=== PATIENT | female | born 1935 | race Caucasian/White ===

== ENCOUNTER 2019-05-27 13:33 | Outpatient (CLI) | payer MEDICARE, SELFPAY ==
--- NOTE | ~2019-05-27 | XR_ITS ---
EXAMINATION: XR lumbar spine 2-3V DATE: 05/27/2019 14:02 INDICATION: Spinal stenosis TECHNIQUE: Anteroposterior and lateral views of the lumbar spine, and cone-down lateral view of the l umbosacral junction were obtained. COMPARISON: 11/02/2017; CT, 04/02/2018 FINDINGS: There has been interval anterior and posterior fusion at L4-5. Anterior fusion at L3-4 is u nchanged. Previously described anterolisthesis of L4 on L5 has been reduced to anatomic alignment. Th ere is chronic severe loss of intervertebral disc space height at L5-S1 which is unchanged. There is no acute fracture. There is interval loss of vertebral body height at L3 which have the appearance of a burst fracture on the [address] Moderate loss of intervertebral disc space height is pre sent at L2-3. The bowel gas pattern is normal. Cholecystectomy clips are noted in the right upper lucien drant. IMPRESSION: 1. Chronic burst fracture of L3 without significant change. 2. Changes of anterior fusion at L3-4 and L4-5 and posterior fusion at L4-5. 3. Unchanged moderate to severe lumbar spondylosis elsewhere. Reviewed, dictated and finalized at location A. CH SERVICE REPRESENTATIVE
== END 2019-05-27 13:34 | disposition home or self-care (01) ==
PROVIDERS: PCP Family Medicine; Visit Provider Family Medicine
DX: M48.07 Spinal stenosis, lumbosacral region (principal); S32.031A Stable burst fracture of third lumbar vertebra, initial encounter for closed fracture; X58.XXXA Exposure to other specified factors, initial encounter; Z98.1 Arthrodesis status; M47.896 Other spondylosis, lumbar region
CPT/HCPCS: 72100

== ENCOUNTER 2019-06-13 12:26 | Outpatient (CLI) | payer MEDICARE, SELFPAY ==
--- NOTE | ~2019-06-13 | MR_ITS ---
EXAMINATION: MR lumbar spine wo/w con EXAM DATE: 06/13/2019 14:52 INDICATION: Low back pain. Lumbar fusion. TECHNIQUE: Multi-sequential, multiplanar MR images of the lumbar spine were obtained without contrast . Sagittal T1, T2, T2 fat saturation images. Axial T2 weighted images. Axial T1 weighted sequence. Patient was then injected with 17 mL Multihance intravenous contrast and reimaged. Postcontrast axi al and sagittal T1-weighted fat saturation sequences were obtained. Comparison is made to prior exami nation from 12/08/2017. FINDINGS: The interbody fusion hardware at L3-L4. There is been interval L4-5 interbody and posterior fusion and laminectomies. Chronic loss of vertebral body heights from L2-L5. There are no areas of a bnormal enhancement on the post contrast images. There is mild to moderate disc disease at L1-2, moderate to severe at L2-3. Mild loss of L5-S1. Minim al degenerative subluxations. The conus medullaris terminates at the L1-L2 level and has normal signa l intensity and morphology. Paraspinal soft tissue is unremarkable. There are no focal marrow signal abnormalities suspicious for malignancy or acute fracture. Level by level evaluation: T11-T12: There is a mild diffuse disc bulge. Facet arthropathy: Moderate left, mild right. Neural foraminal stenosis: Moderate left. Central canal stenosis: Mild. T12-L1: Disc does not extend beyond the endplate margin. Facet arthropathy: Mild. Neural foraminal stenosis: No stenosis. Central canal stenosis: No stenosis. L1-L2: There is a mild diffuse disc bulge. Facet arthropathy: Mild to moderate. Neural foraminal stenosis: Mild left. Central canal stenosis: No stenosis. L2-L3: There is a large diffuse disc bulge. Facet arthropathy: Moderate. Neural foraminal stenosis: Moderate to severe left, moderate right. Central canal stenosis: Moderate. L3-L4: Fused. Facet arthropathy: Poorly visualized. Neural foraminal stenosis: Mild to moderate right, mild left. Central canal stenosis: Laminotomies, posterior decompression. L4-L5: Interval fusion. Facet arthropathy: Poorly visualized. Neural foraminal stenosis: Moderate bilateral. Central canal stenosis: Posterior decompression. L5-S1: There is a mild to moderate diffuse disc bulge. Facet arthropathy: Moderate. Neural foraminal stenosis: Moderate to severe right, moderate left. Central canal stenosis: Mild. Compared to previous examination, there has been progression in spondylosis particularly at L2-3. IMPRESSION: 1. Interval L4-5 fusion, persistent L3-4 fusion. 2. Interval progression in lumbar disc disease, spondylosis as above. 3. Chronic loss of L2-L5 vertebral body heights. 4. No acute findings or abnormal enhancement. Reviewed, dictated and finalized at location A. BLACKER
[2019-06-13 14:01] LABS: Estimated Glomerular Filt Rate > 60
== END 2019-06-13 12:27 | disposition home or self-care (01) ==
PROVIDERS: PCP Family Medicine; Visit Provider Pain Medicine Pain Medicine
DX: M47.26 Other spondylosis with radiculopathy, lumbar region (principal); Z98.1 Arthrodesis status
CPT/HCPCS: 36415; 72158; A9577

== ENCOUNTER 2020-02-17 00:51 | Outpatient (CLI) | payer MEDICARE, SELFPAY ==
[2020-02-17 20:27] LABS: SARS-CoV-2 RNA PCR Negative
== END 2020-02-17 00:52 | disposition home or self-care (01) ==
LOC: ANHCOVIDDT 00:51
PROVIDERS: PCP Family Medicine; Visit Provider Neurological Surgery
DX: Z01.812 Encounter for preprocedural laboratory examination (principal); Z11.59 Encounter for screening for other viral diseases
CPT/HCPCS: 87635; C9803; U0003

== ENCOUNTER 2020-02-20 09:09 | Outpatient (CLI) | payer MEDICARE, SELFPAY ==
[2020-02-14 09:10] VITALS: BMI 39.3
[2020-02-20] VITALS (8 sets, daily range): BP systolic 155–180; BP diastolic 69–82; PULSE 56–70; RESP 16–18; TEMP 36.6; O2SAT 92–97
--- NOTE | ~2020-02-20 | CT_ITS ---
EXAMINATION: CT thoracic lumbar w con EXAM DATE: 02/20/2020 12:01 INDICATION: Low back, right leg pain. TECHNIQUE: Spiral CT of the thoracic and lumbar spine following intrathecal injection of contrast, 1 0 mL Omnipaque 300 solution. Axial, coronal and sagittal images were reviewed. The dose-length pro duct (DLP) for this examination was 1700 mGy-cm. The exposure was tailored according to patient siz e (auto mA exposure control), and iterative reconstruction (ASIR) was used as additional dose reducti on technique. Following this, patient was placed in postoperative area for 2 hours observation prior to being discharged. There were no immediate complications. Correlation is made to lumbar MRI from 06/13/2019. FINDINGS: THORACIC SPINE: There is adequate intrathecal opacification. Small amount of intrathecal gas introduc ed during the procedure. Spinal cord has normal diameter throughout its course. There are moderate to large right-sided anterolateral bridging endplate osteophytes. No endplate erosive changes. Mild to moderate diffuse loss of thoracic disc heights. The thoracic spinal canal is widely patent. The verte bral bodies are aligned in the AP dimension. At T11-12 there is moderate left, mild to moderate ri ght neural foraminal stenosis. Moderate to severe right neural foraminal stenosis at C7-T1 and T2-3. Moderate left neural foraminal stenosis at T1-T2 and T2-3. Otherwise no more than mild thoracic neura l foraminal stenosis. There is small sliding gastroesophageal hiatal hernia. LUMBAR SPINE: The conus medullaris terminates at the L1/2 level and has normal signal intensity and m orphology. Interbody fusion at L3-4 and L4-5. Posterior fusion hardware at L4-5. No periprosthetic l ucency. There is moderate chronic loss of the L3 and L4 vertebral body heights, mild at L5. Vacuum di sc phenomenon L1-2, L2-3 and L5-S1. Moderate to severe loss of the L2-3 disc height, moderate at L1-2 and L5-S1. The vertebral bodies are aligned in the AP dimension. There are no osteoblastic or osteol ytic lesions identified. Level by level evaluation: T12-L1: Disc does not extend beyond the endplate margin. Facet arthropathy: Mild bilateral. Neural foraminal stenosis: No stenosis. Central canal stenosis: No stenosis. L1-L2: There is a mild diffuse disc bulge. Facet arthropathy: Mild to moderate. Neural foraminal stenosis: Mild bilateral. Central canal stenosis: Mild. L2-L3: There is moderate disc osteophyte complex. Facet arthropathy: Moderate. Neural foraminal stenosis: Moderate to severe bilateral, left greater than right. Central canal stenosis: Moderate. L3-L4: This level is fused. Facet arthropathy: Poorly visualized. Neural foraminal stenosis: No stenosis. Central canal stenosis: No stenosis. Posterior decompression. L4-L5: This level is fused. Facet arthropathy: Poorly visualized. Neural foraminal stenosis: Mild bilateral. Central canal stenosis: No stenosis. Posterior decompression. L5-S1: There is a mild diffuse disc bulge. Facet arthropathy: Moderate to severe. Neural foraminal stenosis: Moderate to severe right, moderate left. Central canal stenosis: No stenosis. IMPRESSION: 1. Intact fusion L3-L5. Laminectomies. 2. Chronic L3-L5 compression fractures. 3. Thoracolumbar spondylosis as detailed above. Reviewed, dictated and finalized at location A. CTION CONTROL COORDINATOR
--- NOTE | ~2020-02-20 | XR_ITS ---
EXAMINATION: XR_MY2+_CR EXAM DATE: 02/20/2020 12:12 INDICATION: back pain, bilateral leg pain right side worse. Leg swelling. TECHNIQUE: Informed consent was obtained from the patient for doing this procedure. I discussed monroe efits and risks including bleeding, infection, backache, headache and seizure. Alternatives also disc ussed. The DAP for this procedure was 17.7 Gycm2. Correlation made with prior CT chest for rib count ing purposes. Time out procedure was performed. Community Support Worker radiograph was obtained. An entry site was chosen at the L5 -S1 level. A right paracentral approach was used. Standard sterile prep was done with Betadine. En try site was infiltrated with 3 cc 1% lidocaine. A 3.5 22G spinal needle was then inserted into the spinal canal. 8 mL Omnipaque 300 were then injected into the thecal sac. FINDINGS: Images demonstrate lumbar fusion hardware at L4-5 with interbody device and posterior fusio n hardware. Laminectomies. There is also interbody fusion at L3-4. Chronic L3-L5 compressions. Spinal needle projecting over the canal at the L5-S1 level. Initially small blush of contrast which w as believed to be epidural in position. The needle was then slightly repositioned at that level, and subsequently 8 mL of contrast was injected into the thecal sac. The needle was then withdrawn. Patient began experiencing discomfort, mostly in her right leg. We allowed her to lay on her side and then decided not to attempt multiple positionings for the myelogram images which typically do not co ntribute much information other than adequate placement of contrast and vertebral body counting. She also had complained of severe hip pain prior to procedure turned on her right side down. She was move d to the stretcher which was then was placed in Trendelenburg position for the transferred to CT. Moira quate thoracic intrathecal opacification was confirmed after patient's CT was obtained. Patient has 12 thoracic rib-bearing vertebral bodies which were confirmed on a prior CT chest. IMPRESSION: Lumbar fusion L3-L5. Adequate intrathecal opacification for subsequent CT. Reviewed, dictated and finalized at location A. AL SCIENCES PROFESSOR IMPRESSION: Lumbar fusion L3-L5. Adequate intrathecal opacification for subsequ ent CT.
[2020-02-20 09:43] LABS: Basophils Percent Auto 0.5 % (0.2-1.2); Eosinophils Absolute Auto 0.2 K/mm3 (0-0.3); Hematocrit 39.3 % (37.0-47.0); Hemoglobin 12.8 g/dL (12.0-15.0); Immature Granulocyte Absolute 0.01 K/mm3 (0.00-0.031); Immature Granulocyte Percent A 0.2 % (0-0.5); Lymphocytes Absolute Auto 1.35 K/mm3 (0.9-3.2); Lymphocytes Percent Auto 21.2 % (18.3-44.2); Mean Corpuscular HGB Conc 32.6 g/dl (32-36); Mean Corpuscular Hemoglobin 31.9 pg (26-34); Mean Platelet Volume 10.4 fl (7.4-10.4); Monocytes Absolute Auto 0.6 K/mm3 (0.1-0.6); Monocytes Percent Auto 9.6 % (2.6-8.5); Neutrophils Absolute Auto 4.2 K/mm3 (1.3-6.7); Neutrophils Percent Auto 65.5 % (45.5-73.1); Platelet Count Result 165 k/mm3 (150-375); Red Blood Count 4.01 M/mm3 (4.2-5.4); White Blood Count 6.4 K/mm3 (4.5-10.0)
[2020-02-20 10:01] LABS: Prothrombin Time 13.7 Seconds (11.1-14.7)
--- NOTE | 2020-02-20 13:33 | SUR.PHASEII ---
[id number] DR CORNELIUS SPEAKING WITH PT & SPOUSE- QUESTIONS ANSWERED. DR CORNELIUS OKAY TO DISCHARGE PT HOME.
== END 2020-02-20 13:55 | disposition home or self-care (01) ==
PROVIDERS: Radiology Diagnostic Radiology; PCP Family Medicine; Visit Provider Neurological Surgery
DX: M47.814 Spondylosis without myelopathy or radiculopathy, thoracic region (principal); M47.26 Other spondylosis with radiculopathy, lumbar region; Z98.1 Arthrodesis status; M48.56XA Collapsed vertebra, not elsewhere classified, lumbar region, initial encounter for fracture; M47.815 Spondylosis without myelopathy or radiculopathy, thoracolumbar region
CPT/HCPCS: 36415; 62305; 72129; 72132; 85025; 85610; 99212; G0463; Q9967

== ENCOUNTER 2021-10-15 12:18 | Outpatient (CLI) | payer MEDICARE, SELFPAY ==
--- NOTE | ~2021-10-15 | MM_ITS ---
MM diagnostic mammo unilat LT DATE: 10/15/2021 14:02 INDICATION: The patient presented for stereotactic biopsy of posterior lower outer quadrant grouped m icrocalcifications reported on outside mammogram TECHNIQUE: Digital ML CC views and magnification views COMPARISON: None FINDINGS: There is a cluster of grouped indeterminate microcalcifications in the mid to posterior low er outer quadrant of the right breast. Multiple scattered benign calcified microhematomas and arterial calcifications are noted. Biopsy marker in the posterior central left breast. IMPRESSION: Indeterminate cluster of grouped microcalcifications in the lower outer quadrant The patient was unable to tolerate stereotactic biopsy due to complaints of pain. I discussed the alternative of preoperative mammographically guided needle localization and surgical excision of the calcifications. BIRADS Category 4: Suspicious abnormality RECOMMENDATION: Preoperative mammographically guided needle localization and surgical biopsy Reviewed, dictated and finalized at Location A. Reviewed, dictated and finalized at location A. IMPRESSION: Indeterminate cluster of grouped microcalcifications in the lower o uter quadrant The patient was unable to tolerate stereotactic biopsy due to complaints of nick n. I discussed the alternative of preoperative mammographically guided needle loca lization and surgical excision of the calcifications. BIRADS Category 4: Suspicious abnormality RECOMMENDATION: Preoperative mammographically guided needle localization and s urgical biopsy
== END 2021-10-15 12:19 | disposition home or self-care (01) ==
PROVIDERS: PCP Family Medicine; Visit Provider Student in an Organized Health Care Education/Training Program
DX: R92.8 Other abnormal and inconclusive findings on diagnostic imaging of breast (principal)
CPT/HCPCS: 77065

== ENCOUNTER 2022-02-19 14:01 | Outpatient (CLI) | payer MEDICARE, SELFPAY ==
--- NOTE | 2022-02-19 | ECG_ITS ---
Measurements Intervals [place] Rate: 63 P: 60 W[place]: 172 QRS: 19 QRSD: 111 T: 27 QT: 416 QTc: 427 Interpretive Statements SINUS RHYTHM WITH SINUS ARRHYTHMIA INTRAVENTRICULAR CONDUCTION DELAY BASELINE WANDER- I, II, AVR, AVL, AVF, V1, V5 NORMAL ECG NO PREVIOUS ECG AVAILABLE FOR COMPARISON Electronically Signed On 02-19-2022 15:31:59 AVIONICS SYSTEMS REPAIRER by Murali Perez D.O.
[2022-02-19 14:57] LABS: Appearance Urine Clear (Clear); Bilirubin Urine Negative (Negative); Blood Urine Trace-intact (Negative); Color Urine Yellow (Yellow); Glucose Urine UA 3+ mg/dL (Negative); Ketones Urine Trace mg/dL (Negative); Leukocyte Esterase Ur Negative LEU/UL (Negative); Nitrate Urine Negative (Negative); Protein Urine Negative (Negative); Specific Grav Ur 1.015 (1.001-1.035); Urobilinogen Urine 0.2 mg/dL (<2.0); pH Urine 5.5 (5.0-9.0)
[2022-02-19 15:03] LABS: Mucus Urine Rare /lpf; RBC Urine 0-2 /hpf (0-2); Squamous Epithelial Cell Urine Few /hpf (Few); WBC Urine 0-3 /hpf
[2022-02-19 15:04] LABS: Add Urine Microscopic? YES
[2022-02-19 15:08] LABS: INR 1.1; Partial Thromboplastin Time 29.1 SECONDS (22.3-36.8); Prothrombin Time 13.7 Seconds (11.1-14.7)
[2022-02-19 15:09] LABS: Anion Gap 10 mmol/L (8-16); Blood Urea Nitrogen 22 mg/dL (7-17); Calcium 8.8 mg/dL (8.4-10.2); Carbon Dioxide 27 mmol/L (22-30); Chloride 104 mmol/L (98-107); Estimated Glomerular Filt Rate 60; Glucose 130 mg/dL (65-110); Potassium 3.9 mmol/L (3.4-5.0); Sodium 141 mmol/L (137-145)
[2022-02-19 15:11] LABS: Basophils Percent Auto 0.7 % (0.2-1.2); Eosinophils Absolute Auto 0.3 K/mm3 (0-0.3); Eosinophils Percent Auto 5.4 % (0-4.4); Hematocrit 40.9 % (37.0-47.0); Hemoglobin 13.5 g/dL (12.0-15.0); Hemoglobin A1C 8.5 % (<5.7); Immature Granulocyte Absolute 0.02 K/mm3 (0.00-0.031); Immature Granulocyte Percent A 0.3 % (0-0.5); Immature Platelet Fraction Pct 5.5 % (0.9-11.2); Lymphocytes Absolute Auto 1.27 K/mm3 (0.9-3.2); Lymphocytes Percent Auto 21.3 % (18.3-44.2); Mean Corpuscular Hemoglobin 32.7 pg (26-34); Mean Platelet Volume 11.1 fl (7.4-10.4); Monocytes Absolute Auto 0.7 K/mm3 (0.1-0.6); Monocytes Percent Auto 11.1 % (2.6-8.5); Neutrophils Absolute Auto 3.7 K/mm3 (1.3-6.7); Neutrophils Percent Auto 61.2 % (45.5-73.1); Platelet Count Result 128 k/mm3 (150-375); Red Blood Count 4.13 M/mm3 (4.2-5.4); Red Cell Distribution Width 14.4 % (11.5-14.5)
== END 2022-02-19 14:02 | disposition home or self-care (01) ==
DX: Z01.818 Encounter for other preprocedural examination (principal); E11.9 Type 2 diabetes mellitus without complications
CPT/HCPCS: 36415; 80048; 81001; 83036; 85025; 85055; 85610; 85730; 93005

== ENCOUNTER 2022-07-30 14:30 | Outpatient (RCR) | payer MEDICARE, SELFPAY | END 2022-09-02 10:22 | disposition home or self-care (01) | LOC: ANHDMC 14:30 | PROVIDERS: PCP Emergency Medicine; Visit Provider Emergency Medicine | DX: E11.9 Type 2 diabetes mellitus without complications (principal); Z71.89 Other specified counseling | CPT/HCPCS: G0108; G0109 ==

== ENCOUNTER → 2022-08-18 16:37 | Outpatient (CLI) | payer MEDICARE, SELFPAY ==
--- NOTE | ~2022-08-18 | XR_ITS ---
EXAM: XR thoracic spine 2V DATE: 08/18/2022 17:11 HISTORY: Presence of neurostimulator, placed 6 mos ago . COMPARISON: CT 02/20/2020. FINDINGS: Stimulator leads terminate at the T7-8 disc space. Cholecystectomy clips. Senescent changes in the lungs. Vertebral body heights are maintained. Normal alignment. Multilevel moderate degenerat aravind disc disease, with large bridging osteophytes. IMPRESSION: Neurostimulator leads terminate at the T7-8 disc space. Reviewed, dictated and finalized at location K.
== END ==
PROVIDERS: PCP Pain Medicine Pain Medicine; Visit Provider Pain Medicine Pain Medicine
DX: Z48.89 Encounter for other specified surgical aftercare (principal)
CPT/HCPCS: 72070